=== PATIENT | male | born 1955 | race Caucasian/White ===

== ENCOUNTER 2020-04-07 16:11 | Emergency (ER) | payer OTHER ==
[~2020-04-07] VITALS: Ht 190.5 cm; Wt 131.4 kg
[2020-04-07] MEDS ORDERED: fentaNYL 100 MCG/2 ML INJECTION (J3010) IV PRN ×2 (16:30→18:30)
[2020-04-07] MEDS ORDERED: NS 1,000 ML IV ONE (16:30)
[2020-04-07] MEDS ORDERED: ISOVUE-370 76% 100ML VIAL As Ordered ONE (16:42)
[2020-04-07 17:03] LABS: BASO # 0.1 10^3/uL (0.0-0.2); BASO % 0.4 % (0.0-1.0); EOS % 0.2 % (0.0-3.0); HEMATOCRIT 44.8 % (42.0-52.0); LYMPH # 1.6 10^3/uL (1.5-5.0); LYMPH % 11.5 % (24.0-44.0); MEAN CORPUSCULAR HEMOGLOBIN 30.2 pg (27.0-33.0); MEAN CORPUSCULAR HGB CONC 33.5 g/dl (32.0-36.5); MEAN CORPUSCULAR VOLUME 90.1 fl (80.0-96.0); MONO # 0.8 10^3/uL (0.0-0.8); MONO % 5.4 % (0.0-5.0); NEUTROPHILS # 11.3 10^3/uL (1.5-8.5); NEUTROPHILS % 81.9 % (36.0-66.0); PLATELET COUNT, AUTOMATED 282 10^3/uL (150-450); RED BLOOD COUNT 4.97 10^6/uL (4.30-6.10); WHITE BLOOD COUNT 13.9 10^3/uL (4.0-10.0)
--- NOTE | 2020-04-07 17:06 | REP ---
CHEST: REASON FOR EXAM: Chest pain. FINDINGS: The technique utilized in obtaining the radiograph has magnified the cardiac silhouette and accentuated the interstitial markings. The superior mediastinal structures are midline. The cardiac silhouette is unremarkable in size, shape, and position. The diaphragmatic surfaces of the lungs are regular, and the costophrenic angles are clear. The pulmonary westfall are clear. The imaged osseous structures are intact. IMPRESSION: There is no acute cardiopulmonary disease. The cardiac silhouette is magnified by technique. Electronically Signed by Cam Terry DO 04/07/2020 05:43 P
[2020-04-07 17:16] LABS: INR 1.09; PROTHROMBIN TIME 13.8 SECONDS (11.8-14.0)
[2020-04-07 17:17] LABS: PARTIAL THROMBOPLASTIN TIME 24.7 SECONDS (25.0-38.4)
--- NOTE | 2020-04-07 17:21 | REPVR ---
PROCEDURE INFORMATION: Exam: CT Angiography Chest With Contrast Exam date and time: 04/07/2020 4:50 PM Age: 64 years old Clinical indication: Chest pain; Type not specified TECHNIQUE: Imaging protocol: Computed tomographic angiography of the chest with intravenous contrast. 3D rendering: MIP and/or 3D reconstructed images were created by the technologist. Radiation optimization: All CT scans at this facility use at least one of these dose optimization techniques: automated exposure control; mA and/or kV adjustment per patient size (includes targeted exams where dose is matched to clinical indication); or iterative reconstruction. Contrast material: Isovue 370; Contrast volume: 75 ml; Contrast route: IV; COMPARISON: CR PORTABLE CHEST X-RAY 04/07/2020 4:26 PM FINDINGS: Pulmonary arteries: Normal. No pulmonary emboli. Aorta: No aortic aneurysm. No aortic dissection. Thyroid: Right thyroid hypodensity measuring 30 mm. Lungs: 13.5 mm centrilobular emphysematous focus left lower lobe anterolateral basilar segment. Pleural space: No pneumothorax. No pleural effusion. Heart: Small pericardial effusion. Left main, LAD, LCx and RCA calcified coronary atherosclerosis. Lymph nodes: No enlarged lymph nodes. Bones/joints: Thoracic spine vertebral body marginal osteophytes are noted at multiple levels. Soft tissues: Unremarkable. Other findings: The pulmonary vasculature is congested. IMPRESSION: 1. No pulmonary embolism identified. 2. No thoracic aortic aneurysm or dissection identified. 3. Pulmonary venous congestion. 4. Small pericardial effusion. 5. Coronary atherosclerosis. 6. Recommend nonemergent thyroid sonography for further evaluation of a possible right thyroid mass. COMMENTS: Consistent with the [employer]'s Incidental Findings Committee white paper (J Am Jaspal Radiol 2015): In patients aged 35 years and older with an incidental thyroid nodule equal to or greater than 1.[address], MRI or extrathyroidal US, further evaluation with dedicated thyroid US is recommended for patients with normal life expectancy and without comorbidities. For smaller nodules without suspicious features, no further evaluation or follow up is recommended. Electronically signed by: Jm Bourne On 04/07/2020 17:21:20 PM
[2020-04-07] MEDS: fentaNYL 100 MCG/2 ML INJECTION (J3010) IV PRN ×2 (17:28→17:56)
[2020-04-07 17:37] LABS: ALBUMIN 3.7 GM/DL (3.2-5.2); ALT/SGPT 24 U/L (12-78); BILIRUBIN,DIRECT 0.2 MG/DL (0.0-0.2); BILIRUBIN,TOTAL 0.7 MG/DL (0.2-1.0); CK-MB VALUE MASS 1.5 NG/ML (<3.6); CPK CREATINE PHOSPHOKINASE 96 U/L (39-308); FREE T4 1.27 NG/DL (0.76-1.46); LIPASE 103 U/L (73-393); MB/CK RELATIVE INDEX 1.56 (< OR =4); TOTAL PROTEIN 7.1 GM/DL (6.4-8.2); TROPONIN I < 0.02 NG/ML (< 0.10)
[2020-04-07] MEDS ORDERED: GI COCKTAIL 50ML BTL(HYOSCYAMINE/MAALOX/LIDOCAINE VISCOUS)(1:3:1) PO ONE (17:45)
[2020-04-07 18:07] LABS: ETHYL ALCOHOL (ETHANOL) < 0.003 % (0.000-0.010)
[2020-04-07] MEDS ORDERED: ONDANSETRON 4MG/2ML VIAL IV ONE (18:45)
--- NOTE | 2020-04-07 19:24 | ECGEPIP ---
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
--- NOTE | 2020-04-07 19:27 | ECGEPIP ---
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
[2020-04-07 19:37] LABS: CK-MB VALUE MASS 1.5 NG/ML (<3.6); CPK CREATINE PHOSPHOKINASE 89 U/L (39-308); MB/CK RELATIVE INDEX 1.69 (< OR =4); TROPONIN I < 0.02 NG/ML (< 0.10)
[2020-04-07 19:47] LABS: ERYTHROCYTE SEDIMENTATION RATE 16 mm/hr (0-20)
[2020-04-07 21:38] LABS: AMPHETAMINES LEVEL URINE NEGATIVE (NEGATIVE); BARBITURATES URINE NEGATIVE (NEGATIVE); BENZODIAZEPINES URINE NEGATIVE (NEGATIVE); CANNABINOIDS URINE NEGATIVE (NEGATIVE); COCAINE METABOLITE URINE NEGATIVE (NEGATIVE); METHADONE URINE NEGATIVE (NEGATIVE); OPIATES URINE NEGATIVE (NEGATIVE); PHENCYCLIDINE URINE NEGATIVE (NEGATIVE)
[2020-04-07] MEDS ORDERED: KETOROLAC 30 MG/ML 1ML VIAL IV ONE (22:30)
[2020-04-07 22:46] LABS: NT-PRO BNP 256 PG/ML (<125)
[2020-04-08 00:42] LABS: CPK CREATINE PHOSPHOKINASE 67 U/L (39-308); MB/CK RELATIVE INDEX 1.49 (< OR =4); TROPONIN I < 0.02 NG/ML (< 0.10)
[2020-04-08] MEDS ORDERED: KETO10TAB PO (00:50)
[2020-04-08 01:10] VITALS: BP 114/62
--- NOTE | 2020-04-08 14:37 | ECGEPIP ---
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
--- NOTE | 2020-04-08 14:40 | ECGEPIP ---
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
--- NOTE | 2020-04-09 14:07 | ED PDOC ---
Post-Departure Follow-Up certified letter sent to pt re formal report of cta - needs fu. who is pcp? if n one refer to gme and fax. Rosalind Goldsmith MD Apr 09, 2020 14:07
== END 2020-04-08 02:00 | disposition home or self-care (01) ==
LOC: M ED 16:11 → EDBD 16:11 → M ED 04-08 02:00
DX: I31.9 Disease of pericardium, unspecified (principal); E04.1 Nontoxic single thyroid nodule; R00.1 Bradycardia, unspecified; I44.0 Atrioventricular block, first degree; I45.9 Conduction disorder, unspecified; I10 Essential (primary) hypertension; I25.10 Atherosclerotic heart disease of native coronary artery without angina pectoris; R09.89 Other specified symptoms and signs involving the circulatory and respiratory systems; Z88.5 Allergy status to narcotic agent
CPT/HCPCS: 71045; 71275; 80047; 80076; 80307; 82140; 82550; 82553; 83605; 83690; 83880; 84439; 84443; 84484; 85025; 85610; 85652; 85730; 93005; 93041; 94760; 96361; 96374; 96375; 96376; 99285; G0480; J1885; J2405; J3010; Q9967

== ENCOUNTER → 2020-04-23 | Outpatient (CLI) | payer OTHER ==
[~2020-04-23] MED LIST: KETO10TAB PO
== END ==
LOC: M LABSMTC 12:08
PROVIDERS: ATTEND Family Medicine
DX: Z03.818 Encounter for observation for suspected exposure to other biological agents ruled out (principal); Z11.59 Encounter for screening for other viral diseases
CPT/HCPCS: C9803; U0003